=== PATIENT | female | born 1985 ===

== ENCOUNTER 2018-07-14 20:45 | Inpatient (IN) | payer BC ==
[2018-07-14] MEDS ORDERED: Lactated Ringer's 2,000 ML IV ONE (20:51)
[2018-07-14 20:54] VITALS: BMI 34.3
--- NOTE | 2018-07-14 21:22 | OBHP ---
Datetime: 07/14/2018 20:59 IP Adm Impression: Postterm, intrauterine IP Admit Plan: Admit to unit; Initiate labor induction protocol Admit Comment, IP Provider: 32 yo f 40.5 week present to L_d for induction of labor due to post -term. Otherwise patient have no complains. Pt denies contraction, vag bleeding or dischare. No compl ication during , good movement. Last US last week baby vertex PCP Dr Meade Allergy none Med PNV PMH none PSH none OBGYN prev-ectopic PFH: sister pre-eclampsia, otherwise nothing Social Denies smoke,drink or drug use. Assessment and plan 32 yo f 40.5 week present to L_d for induction of labor due to post-term. Admitted to L_D Start induction of labor protocol LR 2L at 999 LR 1 L at 125 Anesthesia on case Nitrous oxide Cervidel vag monitor strip monitor vitals f/u for changes Ysabri PGY1 Case discussed with Dr Dolan. Case discussed with Dr. Jaime agree with the note and plan of care Pelvic Type - PN: Adequate Extremities - PN: Normal Abdomen - PN: Normal Back - PN: Normal Breast - PN: Not Done Lungs - PN: Normal Heart - PN: Normal Thyroid - PN: Normal Neurologic - PN: Normal HEENT - PN: Normal General - PN: Normal Presentation-Admit: Vertex FHR - Baseline A Provider: 140 Comments, ACOG Physical Exam: Heart s1 s2 heard no extra heart sound lung clear abd non-tender bs+ Gestation - Est Wks by US: 40.5 EGA AdmitDate IP: 40.5 Vital Signs Provider: Reviewed; Within Normal Limits IP Chief Complaint: Scheduled induction of labor NICHD Variability Prov Fetus A: Moderate 6-25bpm NICHD Accel Fetus A IP Provider: 15X15 FHR Category Provider Fetus A: Category I NICHD Decel Fetus A IP Provider: None Genitourinary Exam: Normal DTRs - PN: Not Done
[2018-07-14] MEDS ORDERED: Oxytocin 30 UNIT in NS 500 ml 30 UNITS/500 ML BAG IV ONE (21:30)
[2018-07-14] MEDS: Lactated Ringer's 1,000 ML IV SCH (21:42)
[2018-07-14 21:45] LABS: BASO % 0.4 % (0.0-2.0); EOS # 0.1 K/uL (0.0-0.7); EOS % 0.7 % (0.0-4.0); HEMOGLOBIN 10.2 g/dL (12.0-16.0); LYMPH # 1.6 K/uL (1.0-4.3); MEAN CELL VOLUME 88.2 fl (81.0-99.0); MEAN CORPUSCULAR HEMOGLOBIN 29.6 pg (27.0-31.0); MEAN CORPUSCULAR HGB CONC 33.5 g/dL (33.0-37.0); MEAN PLATELET VOLUME 9.2 fl (7.2-11.7); MONO # 0.7 K/uL (0.0-0.8); MONO % 7.6 % (0.0-10.0); NEUT # 6.5 K/uL (1.8-7.0); NEUT % 73.3 % (50.0-75.0); RBC 3.45 Mil/uL (3.80-5.20); RED CELL DISTRIBUTION WIDTH 13.8 % (11.5-14.5); WHITE BLOOD COUNT 8.9 K/uL (4.8-10.8)
[2018-07-14] MEDS ORDERED: OXYTOCIN/0.9 % NS 20 UNIT/1,000 ML BAG IV SCH (22:00)
[2018-07-15 03:49] VITALS: O2SAT 100
--- NOTE | 2018-07-15 23:20 | OBPN ---
Datetime: 07/15/2018 23:14 IP Procedures: Sterile Vag Exam IP Progress Plan: Continue present management; Induction Contraction Comments Provider: q5-8min FHR - Baseline A Provider: 120s-130s IP Progress Note Comment: Patient status post 2 doses of p.o. Cytotec. No cervical change. Discuss ed options with patient. After discussion of options, Cervidil placed vaginally. heart tracin g category 1. All patient questions answered. Vital Signs Provider: Reviewed; Within Normal Limits NICHD Accel Fetus A IP Provider: 15X15 FHR Category Provider Fetus A: Category I NICHD Variability Prov Fetus A: Moderate 6-25bpm Dilatation, Provider: 1 Effacement, Provider: 50 Station, Provider: -2 NICHD Decel Fetus A IP Provider: None Datetime: 07/15/2018 06:22 Membranes, Provider: Intact Gestation - Est Wks by US: 40.6 Datetime: 07/14/2018 20:59 Presentation-Admit: Vertex
--- NOTE | 2018-07-16 08:21 | OBPN ---
Datetime: 07/16/2018 06:30 IP Procedures: Sterile Vag Exam IP Progress Plan: Continue present management Contraction Comments Provider: q5min FHR - Baseline A Provider: 120s-130s IP Progress Note Comment: Patient reports contractions getting stronger. Patient reports Cervidil f ell out in bathroom. heart tracing category 1. Patient requesting IV medication. Vital Signs Provider: Reviewed; Within Normal Limits NICHD Accel Fetus A IP Provider: 15X15 FHR Category Provider Fetus A: Category I NICHD Variability Prov Fetus A: Moderate 6-25bpm Dilatation, Provider: 1-2 Effacement, Provider: 90 Station, Provider: -1 NICHD Decel Fetus A IP Provider: None
[2018-07-16] MEDS ORDERED: Oxytocin 30 UNIT in NS 500 ml 30 UNITS/500 ML BAG IV ONE (10:45)
[2018-07-16] MEDS: Lactated Ringer's 1,000 ML IV SCH ×3 (11:00→16:00)
[2018-07-16] MEDS ORDERED: Fentanyl/Bupivacaine HCl 250 ML EPI ONE ×2 (15:36→15:44)
--- NOTE | 2018-07-16 17:49 | OBPN ---
Datetime: 07/16/2018 17:42 IP Progress Impression: Normal progression of labor IP Procedures: Sterile Vag Exam IP Progress Plan: Augmentation; Anticipate Vaginal Delivery Membranes, Provider: Ruptured Amniotic Fluid Color, Provider: Clear Gestation - Est Wks by US: 41.0 Presentation-Admit: Vertex IP Progress Note Comment: IUP at 41 weeks in labor On pitocin for augmentration of labor S/P Epidural for pain Plan: Continue monitoring the progress of labor. Dilatation, Provider: 4-5 Effacement, Provider: 90 Station, Provider: -2
[2018-07-16] MEDS ORDERED: Lactated Ringer's 1,000 ML IV SCH (20:00)
[2018-07-16] MEDS ORDERED: Oxycodone/Acetaminophen 5/325 mg Tab PO PRN ×2 (23:50)
[2018-07-16] MEDS ORDERED: Benzocaine/Menthol SPRAY TOP PRN (23:50)
[2018-07-17] MEDS ORDERED: Benzocaine/Menthol SPRAY TOP PRN (00:44)
[2018-07-17] MEDS ORDERED: Oxycodone/Acetaminophen 5/325 mg Tab PO PRN ×2 (00:44)
[2018-07-17 07:38] LABS: BASO % 0.1 % (0.0-2.0); EOS % 0.1 % (0.0-4.0); LYMPH # 1.3 K/uL (1.0-4.3); LYMPH % 9.2 % (20.0-40.0); MEAN CELL VOLUME 89.4 fl (81.0-99.0); MEAN CORPUSCULAR HEMOGLOBIN 29.6 pg (27.0-31.0); MEAN CORPUSCULAR HGB CONC 33.1 g/dL (33.0-37.0); MEAN PLATELET VOLUME 9.9 fl (7.2-11.7); MONO % 7.1 % (0.0-10.0); NEUT # 11.5 K/uL (1.8-7.0); NEUT % 83.5 % (50.0-75.0); PLATELET COUNT 191 K/uL (130-400); RBC 3.39 Mil/uL (3.80-5.20); RED CELL DISTRIBUTION WIDTH 14.1 % (11.5-14.5); WHITE BLOOD COUNT 13.8 K/uL (4.8-10.8)
[2018-07-17] MEDS: Multivitamin With Minerals Tab PO SCH (08:22)
[2018-07-17] MEDS ORDERED: Multivitamin With Minerals Tab PO SCH (09:00)
[2018-07-17 09:35] LABS: BANDS 5 % (0-2); LYMPHOCYTE 5 % (20-50); MONOCYTE 6 % (0-10); NEUTROPHIL 84 % (42-75); TOTAL CELLS COUNTED 100
[2018-07-17 09:36] LABS: ANISOCYTOSIS SLIGHT; PLATELET ESTIMATE NORMAL (NORMAL)
[2018-07-17 09:37] LABS: HYPOCHROMIC SLIGHT; LARGE PLATELETS PRESENT
--- NOTE | 2018-07-17 12:24 | OBDS ---
DELIVERY PERSONNEL Delivery Doctor: Cassandra Christy MD Side Panel Hanger: Anastasiya Elizabeth RN Anesthesiologist: jamie Resident: Shruthi MATERNAL INFORMATION Delivery Anesthesia: Epidural Medications in Delivery: Pitocin Estimated Blood Loss (ml): 300 Placenta Cultured: No Maternal Complications: Uterine Tachysystole Provider Comments: Normal spontaneous vaginal delivery of live male infact at 23:11, position CRAIG ov er intact perineum with epidural anesthesia. Meconium was noted at [facility], ancillary services manager therapy was present for the delivery. Immediate cord clamping was performed and the baby was handed to the ancillary services manager therapy for evaluation. was a short duration of CPAP with appropriate increase in oxygen saturation. s 7 _ 8. Infant was then placed back on maternal chest for skin to skin, please see the ancillary services manager therapy' s note for further information. No nuchal cord. Spontaneous delivery of placenta with 3-vessel cord. See laceration repair note. QBL 300cc. Mom and baby are in stable condition and will be recovered in L_D. Attending Dr. Christy was present for the delivery. Monika Tom MD OB Fellow Attending Note: Delivery was conducted with the FP OB fellow and I agree with the above assessment. LABOR SUMMARY EDC: 07/09/2018 00:00 No. Babies in Womb: 1 Attempted: No Labor Anesthesia: Epidural LABOR INFORMATION Reason for Induction: Postterm Onset of Labor: 07/16/2018 17:40 Complete Dilatation: 07/16/2018 21:53 Cervical Ripening Agents: Cervidil Oxytocin: Augmentation Group B Beta Strep: Negative Antibiotics # of Doses: 0 Antibiotics Time of Last Dose: n/a Steroids Given: None Reason Steroids Not Administered: Not Applicable MEMBRANES Membranes Rupture Method: Spontaneous Rupture of Membranes: 07/16/2018 02:21 Length of Rupture (hrs): 20.83 Amniotic Fluid Color: Light Meconium Amniotic Fluid Amount: Moderate Amniotic Fluid Odor: Normal STAGES OF LABOR Stage 1 hrs: 4 Stage 1 min: 13 Stage 2 hrs: 1 Stage 2 min: 18 Stage 3 hrs: 0 Stage 3 min: 15 Total Time in Labor hrs: 5 Total Time in Labor min: 46 VAGINAL DELIVERY Episiotomy: None Laceration Extension: Second Degree Laceration Type: Vaginal Other Laceration: R labial Laceration Repair: Yes Initial Vag Sponge Count: 15 Final Vag Sponge Count: 15 Initial Vag Sharps Count: 4 Final Vag Sharps Count: 4 Sponge Count Correct: Yes Sharps Count Correct: Yes Count Comment: count correct BABY A INFORMATION Delivery Date/Time: 07/16/2018 23:11 Method of Delivery: Vaginal Born in Route : No : N/A Forceps: N/A Vacuum Extraction: N/A Shoulder Dystocia : No SHOULDER DYSTOCIA BABY A Delivery Date/Time: 07/16/2018 23:11 PRESENTATION/POSITION BABY A Presentation: Breech PLACENTA INFORMATION BABY A Placenta Delivery Time : 07/16/2018 23:26 Placenta Method of Delivery: Spontaneous Placenta Status: Delivered SCORES BABY A Heart Rate 1 min: >100 bpm Resp Effort 1 min: Slow, Irregular Reflex Irritability 1 min: Cough or Sneeze or Pulls Away Muscle Tone 1 min: Some Flexion of Extremities Color 1 min: Body [place], Extremities Blue Resuscitation Effort 1 min: Tactile Stimulation; Oxygen; PPV/NCPAP SCORE 1 MIN: 7 Heart Rate 5 min: >100 bpm Resp Effort 5 min: Slow, Irregular Reflex Irritability 5 min: Cough or Sneeze or Pulls Away Muscle Tone 5 min: Active Motion Color 5 min: Body [place], Extremities Blue Resuscitation Effort 5 min: Oxygen; PPV/NCPAP SCORE 5 MIN: 8 INFANT INFORMATION BABY A Gestational Age at Delivery: 41.0 Gestational Status: Term Infant Outcome : Liveborn Infant Condition : Stable Sex: Male IDENTIFICATION/MEDS BABY A ID Band Number: [id number] ID Band Location: Left Leg; Left Arm CORD INFORMATION BABY A No. Cord Vessels: 3 Nuchal Cord : N/A Cord Blood Taken: Yes Infant Suction: Mouth; Nose; Pharynx ASSESSMENT BABY A Complications: Multiple Variable Decels; Meconium Physical Findings at Delivery: Caput Succedaneum Respirations: Appears Normal Assurance Sourcing Manager/ALS Called : No Care By: Garo Omer Transferred To: Remains with Mother RESUSCITATION BABY A Resuscitation Effort: Tactile Stimulation; Oxygen; PPV/NCPAP
[2018-07-18] MEDS: Multivitamin With Minerals Tab PO SCH (08:41)
--- NOTE | 2018-07-18 08:59 | OBPPN ---
Datetime: 07/18/2018 08:54 PP Pain Prov: Within normal limits PP Nausea Prov: Denies PP Flatus Prov: Yes PP Breasts Prov: Normal PP Heart Prov: Normal PP Lungs Prov: Normal PP Abdomen/Uterus Prov: Normal PP Lochia Prov: Normal PP Vulva/Perineum Prov: Normal PP CVA Tenderness Prov: Normal PP Extremities Prov: Normal PP Progress Prov: Normal PP Comments Phys Exam Prov: Abd; Soft, NT, BS- present UT- Firm, fundus below umbilicus PP Impression Prov: Normal progression PP Plan Prov: Discharge PP Progress Note Prov: S/P , PPD #2 Clinically Stable Plan: Discharge Home Vital Signs Provider PP: Reviewed
--- NOTE | 2018-07-18 09:01 | OBDCSUM ---
Datetime: 07/18/2018 08:56 Discharged to, Provider: Home Follow up at, Provider: Magdaleno Thompson Instr Activity: Normal activity Disch Instr Diet: Regular Discharge Instructions, Provider: Routine instructions given Discharge Diagnosis, Provider: Term Delivered Discharge Time: 07/18/2018 08:56 Follow up in weeks, Provider: 6 weeks Disch Referrals: None Contraception discussed, Prov: Yes Discharge Comment, Provider: S/p Uncomplicated , Clinically Stable Discharge Diagnosis Prov Other: S/p Uncomplicated , Clinically Stable
[2018-07-18 15:59] VITALS: BP 117/69; PULSE 79; RESP 20; TEMP 98.1
== END 2018-07-18 11:42 | disposition home or self-care (01) | DRG 807 ==
LOC: H.L&D 20:51 → H.OB/GYN 07-17 01:30
PROVIDERS: ADMIT Obstetrics & Gynecology Gynecology; ATTEND Obstetrics & Gynecology Gynecology
PROC: 4A1HXCZ Monitoring of Products of Conception, Cardiac Rate, External Approach (ICD-10-PCS; 2018-07-14)
PROC: 10E0XZZ Delivery of Products of Conception, External Approach (ICD-10-PCS; principal; 2018-07-16)
PROC: 0KQM0ZZ Repair Perineum Muscle, Open Approach (ICD-10-PCS; 2018-07-16)
PROC: 10907ZC Drainage of Amniotic Fluid, Therapeutic from Products of Conception, Via Natural or Artificial Opening (ICD-10-PCS; 2018-07-16)
PROC: 3E0P7VZ Introduction of Hormone into Female Reproductive, Via Natural or Artificial Opening (ICD-10-PCS; 2018-07-16)
DX: O48.0 Post-term pregnancy (principal); O76 Abnormality in fetal heart rate and rhythm complicating labor and delivery; O77.0 Labor and delivery complicated by meconium in amniotic fluid; O70.1 Second degree perineal laceration during delivery; Z37.0 Single live birth; Z3A.41 41 weeks gestation of pregnancy